=== PATIENT | male | born 1985 | race Caucasian/White ===

== ENCOUNTER 2017-02-14 06:03 | Day surgery (SDC) | payer BC ==
[2017-02-14] MEDS ORDERED: Sodium Chloride 0.9% 1,000 ML IV ONE (06:08)
[2017-02-14] MEDS ORDERED: Ondansetron 4 MG/2 ML SDV IVPUSH ONE (06:08)
[2017-02-14] MEDS ORDERED: Ketorolac 30 MG/ML SDV IVPUSH ONE (06:08)
--- NOTE | 2017-02-14 06:10 | EDM.PDOC ---
ED HPI GENERAL MEDICAL PROBLEM - General Chief Complaint: Abdominal Pain Stated Complaint: ABDOMINAL PAIN Time Seen by Provider: 02/14/17 06:08 - History of Present Illness INITIAL COMMENTS - FREE TEXT/NARRATIVE: HISTORY AND PHYSICAL: History of present illness: Patient 31-year-old white male presents concern one-day history of right lower quadrant abdominal pain this is been without associated nausea vomiting diarrhea he denies any trauma denies history of urolithiasis he states he had a similar episode in the past and had a complete workup and had appendicitis ruled out at that time he denies chest pain shortness of breath or any other concern Review of systems: As per history of present illness and below otherwise all systems reviewed and negative. Past medical history: As per history of present illness and as reviewed below otherwise noncontributory. Surgical history: As per history of present illness and as reviewed below otherwise noncontributory. Social history: No reported history of drug or alcohol abuse. Family history: As per history of present illness and as reviewed below otherwise noncontributory. Physical exam: HEENT: Atraumatic, normocephalic, pupils reactive, negative for conjunctival pallor or scleral icterus, mucous membranes moist, throat clear, neck supple, nontender, trachea midline. Lungs: Clear to auscultation, breath sounds equal bilaterally, chest nontender. Heart: S1S2, regular, negative for clicks, rubs, or JVD. Abdomen: Soft, nondistended, localized right lower quadrant tenderness with equivocal guarding no rebound. Negative for masses or hepatosplenomegaly. Negative for costovertebral tenderness. Pelvis: Stable nontender. Genitourinary: Deferred. Rectal: Deferred. Extremities: Atraumatic, negative for cords or calf pain. Neurovascular unremarkable. Neuro: Awake, alert, oriented. Cranial nerves II through XII unremarkable. Cerebellum unremarkable. Motor and sensory unremarkable throughout. Exam nonfocal. Diagnostics: CBC CMP UA CT abdomen and pelvis Therapeutics: Normal saline 1 L bolus Zofran 4 mg IV Toradol 30 mg IV Impression: #1 acute right lower quadrant abdominal pain Definitive disposition and diagnosis as appropriate pending reevaluation and review of above. - Related Data Allergies Allergy/AdvReac Type Severity Reaction Status Date / Time amoxicillin Allergy Hives Verified 02/14/17 06:08 Penicillins Allergy Hives Verified 02/14/17 06:08 Home Meds: Home Meds . [No Known Home Meds] 09/16/15 [History] Past Medical History - Past Health History Medical/Surgical History: Denies Medical/Surgical History Social & Family History - Family History Oncologic: Reports: Lung - Tobacco Use Years of Tobacco use: 13 Packs/Tins Daily: 1 - Alcohol Use Days Per Week of Alcohol Use: 6 Number of Drinks Per Day: 2 Total Drinks Per Week: 12 - Recreational Drug Use Recreational Drug Use: No ED ROS GENERAL - Review of Systems Review Of Systems: ROS reveals no pertinent complaints other than HPI. ED EXAM, GENERAL - Physical Exam Exam: See Below (See dictation) Course - Vital Signs Last Recorded V/S: Last Vital Signs Temp 35.7 C 02/14/17 06:09 Pulse 75 02/14/17 06:09 Resp 17 02/14/17 06:09 BP 136/87 02/14/17 06:09 Pulse Ox 95 02/14/17 06:09 - Orders/Labs/Meds Orders: Active Orders 24 hr Category Date Time Status Abdomen Pelvis wo Cont [CT] Stat Exams 02/14/17 06:09 Taken Sodium Chloride 0.9% [Normal Saline] 1,000 ml Med 02/14/17 06:08 Active IV .BOLUS Medication Orders Sodium Chloride (Normal Saline) 1,000 mls @ 999 mls/hr IV .BOLUS ONE Stop: 02/14/17 07:08 Last Admin: 02/14/17 06:12 Dose: 999 mls/hr Labs: Laboratory Tests 02/14/17 02/14/17 02/14/17 Range/Units 06:10 06:10 06:35 WBC 8.45 (4.0-11.0) K/uL RBC 5.26 (4.50-5.90) M/uL Hgb 15.5 (13.0-17.0) g/dL Hct 44.4 (38.0-50.0) % MCV 84.4 (80.0-98.0) fL MCH 29.5 (27.0-32.0) pg MCHC 34.9 (31.0-37.0) g/dL RDW Std Deviation 39.6 (28.0-62.0) fl RDW Coeff of Rodo 13 (11.0-15.0) % Plt Count 178 (150-400) K/uL MPV 9.90 (7.40-12.00) fL Neut % (Auto) 71.9 (48.0-80.0) % Lymph % (Auto) 16.1 (16.0-40.0) % [place] % (Auto) 10.8 (0.0-15.0) % Eos % (Auto) 1.1 (0.0-7.0) % Baso % (Auto) 0.1 (0.0-1.5) % Neut # (Auto) 6.1 H (1.4-5.7) K/uL Lymph # (Auto) 1.4 (0.6-2.4) K/uL [place] # (Auto) 0.9 H (0.0-0.8) K/uL Eos # (Auto) 0.1 (0.0-0.7) K/uL Baso # (Auto) 0.0 (0.0-0.1) K/uL Nucleated RBC % 0.0 /100WBC Nucleated RBCs # 0 K/uL Sodium 140 (136-146) mmol/L Potassium 4.1 (3.5-5.1) mmol/L Chloride 106 (98-110) mmol/L Carbon Dioxide 25 (21-31) mmol/L BUN 14 (6.0-23.0) mg/dL Creatinine 1.2 (0.6-1.5) mg/dL Est Cr Clr Drug Dosing 97.00 mL/min Estimated GFR (MDRD) > 60.0 ml/min Glucose 112 H (60-110) mg/dL Calcium 9.9 (8.8-10.8) mg/dL Total Bilirubin 1.9 H (0.1-1.5) mg/dL AST 17 (5-40) IU/L ALT 27 (8-54) IU/L Alkaline Phosphatase 55 (40-150) Total Protein 8.0 (6.0-8.0) g/dL Albumin 4.5 (3.5-5.0) g/dL Globulin 3.5 (2.0-3.5) g/dL Albumin/Globulin Ratio 1.3 (1.3-2.8) Urine Color YELLOW Urine Appearance CLEAR Urine pH 5.5 (5.0-8.0) Ur Specific [place] 1.020 (1.001-1.035) Urine Protein TRACE (NEGATIVE) mg/dL Urine Glucose (UA) NEGATIVE (NEGATIVE) mg/dL Urine Ketones NEGATIVE (NEGATIVE) mg/dL Urine Occult Blood TRACE-LYSED (NEGATIVE) Urine Nitrite NEGATIVE (NEGATIVE) Urine Bilirubin NEGATIVE (NEGATIVE) Urine Urobilinogen 0.2 (<2.0) EU/dL Ur Leukocyte Esterase NEGATIVE (NEGATIVE) Urine RBC 2-3 (0-2/HPF) Urine WBC 1-2 (0-5/HPF) Ur Epithelial Cells RARE (NONE-FEW) Urine Bacteria RARE (NEGATIVE) Meds: Medications Generic Name Dose Route Start Last Admin Trade Name Freq PRN Reason Stop Dose Admin Sodium Chloride 1,000 mls @ 999 mls/hr 02/14/17 06:08 02/14/17 06:12 Normal Saline IV 02/14/17 07:08 999 mls/hr .BOLUS ONE Administration Discontinued Medications Generic Name Dose Route Start Last Admin Trade Name Freq PRN Reason Stop Dose Admin Ketorolac Tromethamine 30 mg 02/14/17 06:08 02/14/17 06:13 Toradol IVPUSH 02/14/17 06:09 30 mg ONETIME ONE Administration Ondansetron HCl 4 mg 02/14/17 06:08 02/14/17 06:13 Zofran IVPUSH 02/14/17 06:09 4 mg ONETIME ONE Administration Departure - Departure Time of Disposition: 06:56 Disposition: Refer to Observation Condition: Good Clinical Impression: Appendicitis - Discharge Information Referrals: PCP,None [Primary Care Provider] - Forms: ED Department Discharge - My Orders Last 24 Hours: My Active Orders 02/14/17 06:08 Sodium Chloride 0.9% [Normal Saline] 1,000 ml IV .BOLUS 02/14/17 06:09 Abdomen Pelvis wo Cont [CT] Stat - Assessment/Plan Last 24 Hours: My Active Orders 02/14/17 06:08 Sodium Chloride 0.9% [Normal Saline] 1,000 ml IV .BOLUS 02/14/17 06:09 Abdomen Pelvis wo Cont [CT] Stat
[2017-02-14 06:39] LABS: CHLORIDE,CL 106 mmol/L (98-110); SODIUM,NA 140 mmol/L (136-146)
[2017-02-14] MEDS ORDERED: cefOXitin 2 GM in Premix Bag 1 BAG IV ONE (07:41)
[2017-02-14] MEDS ORDERED: Lactated Ringers 1,000 ML IV SCH ×2 (07:45→11:15)
--- NOTE | 2017-02-14 07:47 | PCM.HP ---
H&P History of Present Illness - General Date of Service: 02/14/17 Admit Problem/Dx: Admission Diagnosis/Problem Admission Diagnosis/Problem Appendicitis Source of Information: Patient History Limitations: Reports: No Limitations - History of Present Illness Initial Comments - Free Text/Narative: Patient is a 31-year-old gentleman who presented to the emergency room earlier this morning complaining of right lower quadrant pain. Patient states the pain did start yesterday. He was able to eat and has had no nausea, vomiting, or anorexia. No fever or chills. He does have pain with ambulation. When asked to localize the site of most discomfort he points to the right lower quadrant. Symptom Onset Date: 02/13/17 Duration of Symptoms: Reports: Hour(s):, Getting Worse Location: Reports: Abdomen Quality: Reports: Ache, Pressure, Stabbing Severity: Moderate Improves with: Reports: Rest Worsens with: Reports: Movement Associated Symptoms: Reports: No Other Symptoms Right Lower Abdominal Pain Score (Numeric/FACES): 3 - Related Data Allergies/Adverse Reactions: Allergies Allergy/AdvReac Type Severity Reaction Status Date / Time amoxicillin Allergy Hives Verified 02/14/17 06:08 Penicillins Allergy Hives Verified 02/14/17 06:08 Home Medications: Home Meds . [No Known Home Meds] 09/16/15 [History] Past Medical History - Past Health History Medical/Surgical History: Denies Medical/Surgical History HEENT History: Reports: None Cardiovascular History: Reports: None Respiratory History: Reports: Asthma Gastrointestinal History: Reports: None Genitourinary History: Reports: None Musculoskeletal History: Reports: None Neurological History: Reports: None Psychiatric History: Reports: None Endocrine/Metabolic History: Reports: None Hematologic History: Reports: None Immunologic History: Reports: None Oncologic (Cancer) History: Reports: None Dermatologic History: Reports: None - Infectious Disease History Infectious Disease History: Reports: None - Past Surgical History Head Surgeries/Procedures: Reports: None HEENT Surgical History: Reports: None Cardiovascular Surgical History: Reports: None GI Surgical History: Reports: None Male Surgical History: Reports: None Endocrine Surgical History: Reports: None Neurological Surgical History: Reports: None Musculoskeletal Surgical History: Reports: None Social & Family History - Family History Oncologic: Reports: Lung - Tobacco Use Smoking Status *Q: Never Smoker Tobacco Use Within Last Twelve Months: Smokeless Tobacco Years of Tobacco use: 13 Packs/Tins Daily: 1 - Caffeine Use Caffeine Use: Reports: Coffee - Alcohol Use Alcohol Use History: Yes Days Per Week of Alcohol Use: 6 Number of Drinks Per Day: 2 Total Drinks Per Week: 12 - Recreational Drug Use Recreational Drug Use: No H&P Review of Systems - Review of Systems: Review Of Systems: See Below General: Denies: Fever, Chills, Malaise HEENT: Reports: No Symptoms Pulmonary: Denies: Shortness of Breath, Wheezing Cardiovascular: Denies: Chest Pain Gastrointestinal: Reports: Abdominal Pain, Flatus. Denies: Anorexia, Black Stool, Bloody Stool, Constipation, Diarrhea, Decreased Appetite, Distension, Hematemesis, Hematochezia, Nausea, Vomiting Genitourinary: Denies: Dysuria, Frequency, Burning Musculoskeletal: Reports: No Symptoms Skin: Reports: No Symptoms Psychiatric: Reports: No Symptoms Neurological: Reports: No Symptoms Hematologic/Lymphatic: Reports: No Symptoms Immunologic: Reports: No Symptoms Exam - Exam Exam: See Below - Vital Signs Vital Signs: Last Vital Signs Temp 96.3 F 02/14/17 06:09 Pulse 78 02/14/17 07:00 Resp 17 02/14/17 07:00 BP 171/88 H 02/14/17 07:00 Pulse Ox 95 02/14/17 07:00 Weight: 328 lb 7.82 oz - Exam Quality Assessment: No: Supplemental Oxygen General: Alert, Oriented, Cooperative, Mild Distress HEENT: Conjunctiva Clear, EACs Clear, Pupils Equal, Pupils Reactive. No: Scleral Icterus Neck: Supple, Trachea Midline Lungs: Clear to Auscultation, Normal Respiratory Effort Cardiovascular: Regular Rate, Regular Rhythm. No: Tachycardia GI/Abdominal Exam: Normal Bowel Sounds, Soft, No Distention, Rebound, Tender. No: Guarding, Rigid, Hernia, Mass (Male) Exam: No Hernia, Normal Inspection Rectal (Males) Exam: Deferred Back Exam: Normal Inspection Extremities: Normal Inspection, Normal Range of Motion, Non-Tender, No Pedal Edema. No: Mya's Sign, Leg Pain Skin: Warm, Dry, Intact Neurological: Cranial Nerves Intact, Reflexes Equal Bilateral Psychiatric: Alert, Normal Affect, Normal Mood - Patient Data Lab Results Last 24 hrs: Laboratory Results - last 24 hr 02/14/17 02/14/17 02/14/17 Range/Units 06:10 06:10 06:35 WBC 8.45 (4.0-11.0) K/uL RBC 5.26 (4.50-5.90) M/uL Hgb 15.5 (13.0-17.0) g/dL Hct 44.4 (38.0-50.0) % MCV 84.4 (80.0-98.0) fL MCH 29.5 (27.0-32.0) pg MCHC 34.9 (31.0-37.0) g/dL RDW Std Deviation 39.6 (28.0-62.0) fl RDW Coeff of Rodo 13 (11.0-15.0) % Plt Count 178 (150-400) K/uL MPV 9.90 (7.40-12.00) fL Neut % (Auto) 71.9 (48.0-80.0) % Lymph % (Auto) 16.1 (16.0-40.0) % [place] % (Auto) 10.8 (0.0-15.0) % Eos % (Auto) 1.1 (0.0-7.0) % Baso % (Auto) 0.1 (0.0-1.5) % Neut # (Auto) 6.1 H (1.4-5.7) K/uL Lymph # (Auto) 1.4 (0.6-2.4) K/uL [place] # (Auto) 0.9 H (0.0-0.8) K/uL Eos # (Auto) 0.1 (0.0-0.7) K/uL Baso # (Auto) 0.0 (0.0-0.1) K/uL Nucleated RBC % 0.0 /100WBC Nucleated RBCs # 0 K/uL Sodium 140 (136-146) mmol/L Potassium 4.1 (3.5-5.1) mmol/L Chloride 106 (98-110) mmol/L Carbon Dioxide 25 (21-31) mmol/L BUN 14 (6.0-23.0) mg/dL Creatinine 1.2 (0.6-1.5) mg/dL Est Cr Clr Drug Dosing 97.00 mL/min Estimated GFR (MDRD) > 60.0 ml/min Glucose 112 H (60-110) mg/dL Calcium 9.9 (8.8-10.8) mg/dL Total Bilirubin 1.9 H (0.1-1.5) mg/dL AST 17 (5-40) IU/L ALT 27 (8-54) IU/L Alkaline Phosphatase 55 (40-150) Total Protein 8.0 (6.0-8.0) g/dL Albumin 4.5 (3.5-5.0) g/dL Globulin 3.5 (2.0-3.5) g/dL Albumin/Globulin Ratio 1.3 (1.3-2.8) Urine Color YELLOW Urine Appearance CLEAR Urine pH 5.5 (5.0-8.0) Ur Specific [place] 1.020 (1.001-1.035) Urine Protein TRACE (NEGATIVE) mg/dL Urine Glucose (UA) NEGATIVE (NEGATIVE) mg/dL Urine Ketones NEGATIVE (NEGATIVE) mg/dL Urine Occult Blood TRACE-LYSED (NEGATIVE) Urine Nitrite NEGATIVE (NEGATIVE) Urine Bilirubin NEGATIVE (NEGATIVE) Urine Urobilinogen 0.2 (<2.0) EU/dL Ur Leukocyte Esterase NEGATIVE (NEGATIVE) Urine RBC 2-3 (0-2/HPF) Urine WBC 1-2 (0-5/HPF) Ur Epithelial Cells RARE (NONE-FEW) Urine Bacteria RARE (NEGATIVE) Result Diagrams: 02/14/17 06:10 02/14/17 06:10 *Q Meaningful Use (ADM) - VTE *Q VTE Criteria *Q: - Stroke *Q Stroke Criteria *Q: - AMI *Q AMI Criteria *Q: - Problem List (1) Appendicitis SNOMED Code(s): 71221626 ICD Code: K37 - UNSPECIFIED APPENDICITIS Status: Acute Priority: High Current Visit: Yes Qualifiers: Appendicitis type: acute appendicitis (2) Abdominal pain SNOMED Code(s): 11479997 ICD Code: R10.9 - UNSPECIFIED ABDOMINAL PAIN Status: Acute Priority: High Current Visit: No Qualifiers: Abdominal location: right lower quadrant Qualified Code(s): R10.31 - Right lower quadrant pain Problem List Initiated/Reviewed/Updated: Yes Orders Last 24hrs: Active Orders 24 hr Category Date Time Status Admission Status [Patient Status] [ADT] Stat ADT 02/14/17 07:30 Active Antiembolic Devices [RC] PER UNIT ROUTINE Care 02/14/17 07:41 Ordered Patel Catheter Insertion [Insert Urinary Catheter] [OM. Care 02/14/17 07:45 Ordered PC] Q24H Oxygen Therapy [RC] PRN Care 02/14/17 07:40 Ordered Pulse Oximetry [RC] INTERMITTENT Care 02/14/17 07:40 Ordered Skin Preparation [RC] .PREOP Care 02/14/17 07:40 Ordered Urinary Catheter Assessment [RC] ASDIRECTED Care 02/14/17 07:40 Ordered Urinary Catheter Assessment [RC] ASDIRECTED Care 02/14/17 07:41 Ordered Vital Signs [RC] PER UNIT ROUTINE Care 02/14/17 07:40 Ordered Nothing Per Oral Diet [DIET] Diet 02/14/17 Breakfast Ordered Abdomen Pelvis wo Cont [CT] Stat Exams 02/14/17 06:09 Taken Lactated Ringers @ 125 MLS/HR(1000ml) Med 02/14/17 07:45 Ordered Lactated Ringers [Ringers, Lactated] 1,000 ml IV ASDIRECTED cefOXitin [Mefoxin in Dextrose,Iso-Osm 2 GM/50 ML] 2 gm Med 02/14/17 07:41 Ordered Premix Bag 1 bag IV ONETIME Antiembolic Hose [OM.PC] PER UNIT ROUTINE Oth 02/14/17 06:00 Ordered Antiembolic Hose [OM.PC] PER UNIT ROUTINE Oth 02/15/17 06:00 Ordered Sequential Compression Device [OM.PC] Routine Oth 02/14/17 07:40 Ordered Resuscitation Status Routine Resus Stat 02/14/17 07:40 Ordered Assessment/Plan Comment:: There is a 12 mm appendix noted. There are minimal inflammatory changes surrounding the appendix. The radiology interpretation is that of an early acute appendicitis. Laparoscopic appendectomy, possible open appendectomy. Both operative procedures, along with the risks, including, but not limited to, bleeding, infection, pneumonia, deep venous thrombosis, pulmonary emboli, myocardial infarction, and adjacent organ injury have been reviewed with the patient who voices understanding, offers no questions and agrees to proceed.
--- NOTE | 2017-02-14 08:00 | PCM.PREANE ---
Preanesthetic Assessment - Procedure Proposed Procedure: laparoscopic appendectomy - Anesthesia/Transfusion/Family Hx Anesthesia History: No Prior Anesthesia Family History of Anesthesia Reaction: No Intubation History: Unknown - Review of Systems General: Fever, Other (obesity) Pulmonary: No Symptoms Cardiovascular: No Symptoms Gastrointestinal: Abdominal Pain Neurological: No Symptoms Other: Reports: None - Physical Assessment NPO Status Date: 02/13/17 NPO Status Time: 22:00 O2 Sat by Pulse Oximetry: 95 Respiratory Rate: 17 Vital Signs: Last Vital Signs Temp 96.3 F 02/14/17 06:09 Pulse 78 02/14/17 07:00 Resp 17 02/14/17 07:00 BP 171/88 H 02/14/17 07:00 Pulse Ox 95 02/14/17 07:00 Height: 6 ft Weight: 328 lb 7.82 oz ASA Class: 2E Mental Status: Alert & Oriented x3 Airway Class: Mallampati = 2 Dentition: Reports: Normal Dentition Thyro-Mental Finger Breadths: 4 Mouth Opening Finger Breadths: 3 (short neck) ROM/Head Extension: Full Lungs: Clear to Auscultation, Normal Respiratory Effort Cardiovascular: Regular Rate, Regular Rhythm, No Murmurs - Lab Values: Laboratory Last Values WBC 8.45 K/uL (4.0-11.0) 02/14/17 06:10 RBC 5.26 M/uL (4.50-5.90) 02/14/17 06:10 Hgb 15.5 g/dL (13.0-17.0) 02/14/17 06:10 Hct 44.4 % (38.0-50.0) 02/14/17 06:10 MCV 84.4 fL (80.0-98.0) 02/14/17 06:10 MCH 29.5 pg (27.0-32.0) 02/14/17 06:10 MCHC 34.9 g/dL (31.0-37.0) 02/14/17 06:10 RDW Std Deviation 39.6 fl (28.0-62.0) 02/14/17 06:10 RDW Coeff of Rodo 13 % (11.0-15.0) 02/14/17 06:10 Plt Count 178 K/uL (150-400) 02/14/17 06:10 MPV 9.90 fL (7.40-12.00) 02/14/17 06:10 Neut % (Auto) 71.9 % (48.0-80.0) 02/14/17 06:10 Lymph % (Auto) 16.1 % (16.0-40.0) 02/14/17 06:10 [place] % (Auto) 10.8 % (0.0-15.0) 02/14/17 06:10 Eos % (Auto) 1.1 % (0.0-7.0) 02/14/17 06:10 Baso % (Auto) 0.1 % (0.0-1.5) 02/14/17 06:10 Neut # (Auto) 6.1 K/uL (1.4-5.7) H 02/14/17 06:10 Lymph # (Auto) 1.4 K/uL (0.6-2.4) 02/14/17 06:10 [place] # (Auto) 0.9 K/uL (0.0-0.8) H 02/14/17 06:10 Eos # (Auto) 0.1 K/uL (0.0-0.7) 02/14/17 06:10 Baso # (Auto) 0.0 K/uL (0.0-0.1) 02/14/17 06:10 Nucleated RBC % 0.0 /100WBC 02/14/17 06:10 Nucleated RBCs # 0 K/uL 02/14/17 06:10 Sodium 140 mmol/L (136-146) 02/14/17 06:10 Potassium 4.1 mmol/L (3.5-5.1) 02/14/17 06:10 Chloride 106 mmol/L (98-110) 02/14/17 06:10 Carbon Dioxide 25 mmol/L (21-31) 02/14/17 06:10 BUN 14 mg/dL (6.0-23.0) 02/14/17 06:10 Creatinine 1.2 mg/dL (0.6-1.5) 02/14/17 06:10 Est Cr Clr Drug Dosing 97.00 mL/min 02/14/17 06:10 Estimated GFR (MDRD) > 60.0 ml/min 02/14/17 06:10 Glucose 112 mg/dL (60-110) H 02/14/17 06:10 Calcium 9.9 mg/dL (8.8-10.8) 02/14/17 06:10 Total Bilirubin 1.9 mg/dL (0.1-1.5) H 02/14/17 06:10 AST 17 IU/L (5-40) 02/14/17 06:10 ALT 27 IU/L (8-54) 02/14/17 06:10 Alkaline Phosphatase 55 (40-150) 02/14/17 06:10 Total Protein 8.0 g/dL (6.0-8.0) 02/14/17 06:10 Albumin 4.5 g/dL (3.5-5.0) 02/14/17 06:10 Globulin 3.5 g/dL (2.0-3.5) 02/14/17 06:10 Albumin/Globulin Ratio 1.3 (1.3-2.8) 02/14/17 06:10 Urine Color YELLOW 02/14/17 06:35 Urine Appearance CLEAR 02/14/17 06:35 Urine pH 5.5 (5.0-8.0) 02/14/17 06:35 Ur Specific [place] 1.020 (1.001-1.035) 02/14/17 06:35 Urine Protein TRACE mg/dL (NEGATIVE) 02/14/17 06:35 Urine Glucose (UA) NEGATIVE mg/dL (NEGATIVE) 02/14/17 06:35 Urine Ketones NEGATIVE mg/dL (NEGATIVE) 02/14/17 06:35 Urine Occult Blood TRACE-LYSED (NEGATIVE) 02/14/17 06:35 Urine Nitrite NEGATIVE (NEGATIVE) 02/14/17 06:35 Urine Bilirubin NEGATIVE (NEGATIVE) 02/14/17 06:35 Urine Urobilinogen 0.2 EU/dL (<2.0) 02/14/17 06:35 Ur Leukocyte Esterase NEGATIVE (NEGATIVE) 02/14/17 06:35 Urine RBC 2-3 (0-2/HPF) 02/14/17 06:35 Urine WBC 1-2 (0-5/HPF) 02/14/17 06:35 Ur Epithelial Cells RARE (NONE-FEW) 02/14/17 06:35 Urine Bacteria RARE (NEGATIVE) 02/14/17 06:35 - Allergies Allergies/Adverse Reactions: Allergies Allergy/AdvReac Type Severity Reaction Status Date / Time amoxicillin Allergy Hives Verified 02/14/17 06:08 Penicillins Allergy Hives Verified 02/14/17 06:08 - Blood Blood Available: No Product(s) Available: None - Anesthesia Plan Pre-Op Medication Ordered: None - Acknowledgements Anesthesia Type Planned: General Anesthesia (OET) Pt an Appropriate Candidate for the Planned Anesthesia: Yes Alternatives and Risks of Anesthesia Discussed w Pt/Guardian: Yes Pt/Guardian Understands and Agrees with Anesthesia Plan: Yes PreAnesthesia Questionnaire - Past Health History Medical/Surgical History: Denies Medical/Surgical History HEENT History: Reports: None Cardiovascular History: Reports: None Respiratory History: Reports: Asthma Gastrointestinal History: Reports: None Genitourinary History: Reports: None Musculoskeletal History: Reports: None Neurological History: Reports: None Psychiatric History: Reports: None Endocrine/Metabolic History: Reports: None Hematologic History: Reports: None Immunologic History: Reports: None Oncologic (Cancer) History: Reports: None Dermatologic History: Reports: None - Infectious Disease History Infectious Disease History: Reports: None - Past Surgical History Head Surgeries/Procedures: Reports: None HEENT Surgical History: Reports: None Cardiovascular Surgical History: Reports: None GI Surgical History: Reports: None Male Surgical History: Reports: None Endocrine Surgical History: Reports: None Neurological Surgical History: Reports: None Musculoskeletal Surgical History: Reports: None - SUBSTANCE USE Smoking Status *Q: Never Smoker Tobacco Use Within Last Twelve Months: Smokeless Tobacco Days Per Week of Alcohol Use: 6 Number of Drinks Per Day: 2 Total Drinks Per Week: 12 Recreational Drug Use History: No - HOME MEDS Home Medications: Home Meds . [No Known Home Meds] 09/16/15 [History] - CURRENT (IN HOUSE) MEDS Current Meds: Current Medications Cefoxitin Sodium 2 gm/ Premix 50 mls @ 100 mls/hr IV ONETIME ONE Stop: 02/14/17 08:10 Lactated Ringer's (Ringers, Lactated) 1,000 mls @ 125 mls/hr IV ASDIRECTED CHELSEY Discontinued Medications Sodium Chloride (Normal Saline) 1,000 mls @ 999 mls/hr IV .BOLUS ONE Stop: 02/14/17 07:08 Last Admin: 02/14/17 06:12 Dose: 999 mls/hr Ketorolac Tromethamine (Toradol) 30 mg IVPUSH ONETIME ONE Stop: 02/14/17 06:09 Last Admin: 02/14/17 06:13 Dose: 30 mg Ondansetron HCl (Zofran) 4 mg IVPUSH ONETIME ONE Stop: 02/14/17 06:09 Last Admin: 02/14/17 06:13 Dose: 4 mg
[2017-02-14] MEDS ORDERED: Ondansetron 4 MG/2 ML SDV ONE (08:23)
[2017-02-14] MEDS ORDERED: Midazolam 1 MG/ML 2 ML SDV ONE (08:24)
[2017-02-14] MEDS ORDERED: Rocuronium 10 MG/ML 10 ML Syringe ONE (08:24)
[2017-02-14] MEDS ORDERED: Succinylcholine/Normal Saline 200 MG/10 ML Syringe ONE (08:24)
[2017-02-14] MEDS ORDERED: fentaNYL 100 MCG/2 ML SDV ONE ×2 (08:24→10:04)
[2017-02-14] MEDS ORDERED: Propofol 200 MG/20 ML SDV ONE (08:24)
[2017-02-14] MEDS ORDERED: ceFAZolin 1 GM Vial ONE (08:43)
[2017-02-14] MEDS ORDERED: Bupivacaine 0.5% 10 ML SDV ONE (08:43)
[2017-02-14] MEDS ORDERED: Ketorolac 30 MG/ML SDV ONE (10:06)
[2017-02-14] MEDS ORDERED: Neostigmine Methylsulfate 1 MG/ML 5 ML Syringe ONE (10:18)
--- NOTE | 2017-02-14 10:34 | CT ---
EXAM DATE: 02/14/17 PATIENT'S AGE: 31 Patient: ALEA ARNETT Facility: [place], [place] Site . Site : 1985 Study: CT Abdomen/Pelvis WO BEAR [id number]/14/2017 6:38:23 AM Ordering Physician: Doctor Toney Final Report: INDICATION: PT STATES RLQ PAIN STARTING YESTERDAY AND GETTING WORSE, R/O APPY HISTORY: Right lower quadrant abdominal pain. COMPARISON: CT of the abdomen and pelvis 09/16/2015. TECHNIQUE: CT of the abdomen and pelvis. No intravenous contrast. Coronal/sagittal reconstruction images. FINDINGS: Lung bases: No pleural or pericardial effusion. Heart size is normal. No acute airspace disease. No basilar pneumothorax. Abdomen/pelvis: No solid hepatic mass. Hepatic morphology is normal. Spleen size is normal. No adrenal mass. No hydronephrosis. No perinephric edema. Urinary bladder is normal. No pancreatic mass or pancreatic duct dilation. No glandular atrophy. No wall thickening within the colon. There is an inflammatory process in the right lower quadrant, with a dilated appendix. This seen best on series 201, image 115. Appendicitis is suspected. Surgical consultation is advised. The appendix measures up to 12 mm in luminal dimension. The terminal ileum is within normal limits. No drainable fluid collection. No abdominal aortic aneurysm. No abdominal or pelvic lymphadenopathy by size criteria. The bone windows demonstrate no suspicious lytic or blastic bone lesions. The alignment is preserved. IMPRESSION: 1. Acute appendicitis. There is inflammatory stranding in the right lower quadrant adjacent to the appendix, but no drainable fluid collection or extraluminal gas. 2. Surgical consultation is advised. 3. Report called to Dr. Temple, Emergency Department, 02/14/17, 0654 hours. Dictated by Familia Hidalgo MD @ 02/14/2017 6:54:55 AM Dictated by: Familia Hidalgo MD @ 02/14/2017 06:55:07 (Electronic Signature) Report Signed by Proxy. [facility]
[2017-02-14] MEDS ORDERED: Ondansetron 4 MG/2 ML SDV IVPUSH PRN (11:11)
[2017-02-14] MEDS ORDERED: Acetaminophen/HYDROcodone 325-5 MG Tab PO PRN (11:11)
[2017-02-14] MEDS ORDERED: Morphine 10 MG/ML Syringe IVPUSH PRN (11:11)
--- NOTE | 2017-02-14 11:16 | PCM.OPNOTE ---
- General Post-Op/Procedure Note Date of Surgery/Procedure: 02/14/17 Operative Procedure(s): Laparoscopic appendectomy Pre Op Diagnosis: Acute abdomen Post-Op Diagnosis: Acute nonruptured appendicitis Anesthesia Technique: General ET Tube (ASA IIE) Primary Surgeon: Lno Pollock [employer] Tenn[employer] Coach: Candi Mehta Fluid Replacement, Intraop: 1,300 Output, Urine Amount: 300 EBL in mLs: 10 Condition: Fair Free Text/Narrative:: Dictation [id number] CPT CODE 93139
--- NOTE | 2017-02-14 11:54 | PCM.POSTAN ---
POST ANESTHESIA ASSESSMENT - MENTAL STATUS Mental Status: Alert, Oriented - RESPIRATORY Respiratory Status: Respiratory Rate WNL, Airway Patent, O2 Saturation Stable - CARDIOVASCULAR CV Status: Pulse Rate WNL, Blood Pressure Stable - GASTROINTESTINAL GI Status: No Symptoms - POST OP HYDRATION Hydration Status: Adequate & Stable
--- NOTE | 2017-02-14 12:06 | OR ---
SURGEON: Lon Pollock M.D. DATE OF PROCEDURE: 02/14/2017 OPERATION PERFORMED: Laparoscopic appendectomy. DOCUMENTATION IMPROVEMENT SPECIALIST: NICKI Davis student. ANESTHESIA: General endotracheal. ASA CLASSIFICATION: IIE. PREOPERATIVE DIAGNOSIS: Acute abdomen. POSTOPERATIVE DIAGNOSIS: Acute nonruptured appendicitis. INTRAOPERATIVE FLUID REPLACEMENT: 1300 mL of crystalloid. ESTIMATED BLOOD LOSS: 10 mL. INTRAOPERATIVE URINE OUTPUT: 300 mL. DESCRIPTION OF PROCEDURE: The patient was taken to the operating room and placed on the operating table in supine position. Time-out was called for appropriate identification of the patient and procedure. Sequential compression boots were placed. Following satisfactory attainment of general endotracheal anesthesia, a Patel catheter was placed. The abdomen was prepped with DuraPrep solution. Sterile drapes were applied. The skin just above the umbilicus was infiltrated with 0.5% Marcaine solution. The skin incision was made and deepened through the subcutaneous tissue obtaining hemostasis with the use of electrocautery. Veress needle was introduced into the peritoneal cavity. The saline drop test was positive. Carbon dioxide pneumoperitoneum was established with the release set at 13 cm of water. Once we had a satisfactory pneumoperitoneum, 5 mm camera and port were placed through the supraumbilical incision. Under camera vision, 12 mm suprapubic and 5 mm left lower quadrant ports were placed. Each incision was preemptively infiltrated with 0.5% Marcaine solution. The appendix was acutely inflamed. The mesoappendix was taken down with the use of the Harmonic scalpel. The base of the appendix was ligated with the Endo-TIMOTHY stapler with a blue load. The wound was inspected for hemostasis. No bleeding was noted. The right lower quadrant was irrigated with sterile saline solution. All fluid was aspirated. The patient was returned to a neutral position as he had been positioned with his head down and rotated to the left to allow for easy dissection of the appendix. Once the appendix was amputated, this was placed in an Endopouch and delivered through the 12 mm port incision removing the port at the same time. Under camera vision, the 5 mm left lower quadrant port was removed and finally the supraumbilical camera and port were removed. The wounds were inspected for hemostasis and small bleeding sites were electrocoagulated. The suprapubic and supraumbilical incisions were closed in two layers approximating the subcutaneous tissue with 3-0 Polysorb and the skin with subcuticular 4-0 Monocryl. The left lower quadrant port was closed with 4-0 Monocryl. All incisions were Steri-Stripped and dressed with sterile Tegaderm pads. Sponge, needle, instrument counts were all correct. The Patel catheter was removed prior to emergence from anesthesia. Following emergence from anesthesia and extubation, the patient was taken to recovery room in stable condition. BRANDEN ZIMMERMAN /[id number]
--- NOTE | 2017-02-14 15:25 | PCM48HPAN ---
Post Anesthesia Note - EVALUATION WITHIN 48HRS OF ANESTHETIC Vital Signs in Normal Range: Yes Patient Participated in Evaluation: Yes Respiratory Function Stable: Yes Airway Patent: Yes Cardiovascular Function Stable: Yes Hydration Status Stable: Yes Pain Control Satisfactory: Yes Nausea and Vomiting Control Satisfactory: Yes Mental Status Recovered: Yes
[2017-02-14 18:56] VITALS: BP 110/68
== END 2017-02-14 17:30 | disposition home or self-care (01) ==
LOC: MW.ED 06:03 → MW.SDS 07:04 → MW.MS 07:04 → MW.SDS 07:33
PROVIDERS: ATTEND Surgery
DX: K35.80 Unspecified acute appendicitis (principal); Z88.0 Allergy status to penicillin; Z88.1 Allergy status to other antibiotic agents
CPT/HCPCS: 36415; 44970; 74176; 80053; 81001; 85025; 88304; 96361; 96365; 96375; 99284; A9270; J1885; J2250; J2405; J3010; J7040; J7120; 00840; 99283; J0690; J2704

== ENCOUNTER 2023-04-27 00:40 | Emergency (ER) | payer SELFPAY ==
[2023-04-27] MEDS ORDERED: Tetracaine HCl/PF 0.5% 4 ML Bottle EYEBOTH ONE (00:43)
[2023-04-27] MEDS ORDERED: Ondansetron 4 MG Tab.DIS PO ONE (00:49)
[2023-04-27] MEDS ORDERED: Acetaminophen/HYDROcodone 325-5 MG Tab PO ONE (00:49)
[2023-04-27] MEDS: Ibuprofen 400 MG Tab PO ONE ×2 (00:56→00:58)
[2023-04-27] MEDS ORDERED: Erythromycin Base 0.5% Ophth Oint 1 GM Tube EYEBOTH ONE (01:20)
[2023-04-27 01:35] VITALS: BP 126/72; PULSE 76
== END 2023-04-27 01:34 | disposition home or self-care (01) ==
LOC: MW.ED 00:40
DX: H16.133 Photokeratitis, bilateral (principal); Z88.0 Allergy status to penicillin; Z90.49 Acquired absence of other specified parts of digestive tract
CPT/HCPCS: 99283; A9270; J3490